=== PATIENT | male | born 1970 ===

== ENCOUNTER 2019-09-12 18:36 | Emergency (ER) | payer SELFPAY ==
[~2019-09-12] VITALS: Ht 162.6 cm; Wt 77.3 kg
[2019-09-12 20:53] VITALS: BP 137/93
== END 2019-09-12 22:53 | disposition home or self-care (01) ==
LOC: EMS 18:40
DX: S11.81XA Laceration without foreign body of other specified part of neck, initial encounter (principal); L08.9 Local infection of the skin and subcutaneous tissue, unspecified; L91.8 Other hypertrophic disorders of the skin; X58.XXXA Exposure to other specified factors, initial encounter; Y93.89 Activity, other specified; Y92.89 Other specified places as the place of occurrence of the external cause; Y99.8 Other external cause status